=== PATIENT | male | born 1995 | race African-American/Black ===

== ENCOUNTER 2021-01-27 04:25 | Emergency (ER) | payer OTHER ==
[~2021-01-27] VITALS: Ht 185.4 cm; Wt 77.1 kg
[2021-01-27 04:33] VITALS: BP 131/88
[2021-01-27] MEDS ORDERED: IBUPROFEN 600 MG TABLET ONE (04:55)
[2021-01-27] MEDS ORDERED: TDAP [DIPH/PERTUSSIS/TET] 0.5 ML VIAL IM ONE ×2 (04:55→05:00)
[2021-01-27] MEDS ORDERED: IBUPROFEN 600 MG TABLET PO ONE (05:00)
--- NOTE | 2021-01-27 05:00 | NUR ---
Patient discharged to home in stable condition. Written and verbal after care instructions given. Patient verbalizes understanding of instruction. PT ambulatory with a steady gait
== END 2021-01-27 05:00 | disposition home or self-care (01) ==
LOC: ER 04:33
DX: S70.312A Abrasion, left thigh, initial encounter (principal); W22.01XA Walked into wall, initial encounter; Y93.02 Activity, running; Y92.89 Other specified places as the place of occurrence of the external cause; Y99.8 Other external cause status
CPT/HCPCS: 90715